=== PATIENT | female | born 1980 | race Caucasian/White ===

== ENCOUNTER → 2021-04-24 | Outpatient (CLI) | payer BC, OTHER | LOC: ULTRA 11:46 | PROVIDERS: ATTEND Nurse Practitioner | DX: N92.6 Irregular menstruation, unspecified (principal) ==

== ENCOUNTER → 2021-11-22 | Outpatient (CLI) | payer BC, OTHER | LOC: BC 10:38 | PROVIDERS: ATTEND Nurse Practitioner | DX: Z12.31 Encounter for screening mammogram for malignant neoplasm of breast (principal); N63.10 Unspecified lump in the right breast, unspecified quadrant; N63.20 Unspecified lump in the left breast, unspecified quadrant ==

== ENCOUNTER → 2021-12-04 | Outpatient (CLI) | payer BC, OTHER | LOC: ULTRA 14:24 | PROVIDERS: ATTEND Nurse Practitioner | DX: N63.23 Unspecified lump in the left breast, lower outer quadrant (principal); N60.01 Solitary cyst of right breast; N63.10 Unspecified lump in the right breast, unspecified quadrant ==

== ENCOUNTER → 2021-12-12 | Outpatient (CLI) | payer BC, OTHER ==
--- NOTE | 2021-12-17 11:07 | PATH ---
[facility] [address] [place] [address] PATHOLOGY RPT PROCEDURE Name: MATTHEW DEL CID Room #: REG RADHA Curiel.#: [id number] Admission: 12/12/21 Date of : 76 Discharge: Report #: [id number] Path Case #: [id number] [facility] Accession Number: [id number] . 01 Material submitted: . breast - LT BREAST MASS. Modifiers: left . 01 Clinical history: . 3 O'CLOCK 5 CMFN . 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 - Negative for atypia or malignancy. (GABE:gonzalo; 12/14/2021) MBR 12/14/2021 1052 Local . 02 Comment: Dr. Axel Epperson has co-reviewed this case on 12/14/2021 and agrees with my diagnosis. (ANK:gonzalo; 12/14/2021) . 02 Electronically signed: . Zelda Holt MD, Pathologist NPI- [id number] . 01 Gross description: . The specimen is received in formalin, labeled "Matthew Del Cid, left breast 3:00 5 cm from nipple". Received are multiple needle cores of fibrofatty tissue measuring 1.7 x 1.2 x 0.2 cm in aggregate dimensions. The specimen is submitted entirely in cassettes A1 through A3. The cold ischemic time is less than 1 minute. The total formalin fixation time is 25 hours and [address] minutes. ([facility]; 12/13/2021) QAC/QAC 12/13/2021 1136 Local . 02 Pathologist provided ICD-10: N62, N60.32 . 02 CPT . 495367 Specimen Comment: A courtesy copy of this report has been sent to [phone], [phone] Specimen Comment: [address] [place] [address] PATHOLOGY RPT PROCEDURE Name: MATTHEW DEL CID CATE Room #: REG RADHA Blank#: [id number] Admission: 12/12/21 Date of : 76 Discharge: Report #: [id number] Path Case #: [id number] Specimen Comment: Report sent to / ANNA[facility]EL Specimen Comment: A duplicate report has been generated due to demographic updates. Performed at: [address], [place] [id number] MD Axel Epperson MD Phone: [phone] Performed at: [address] [id number] MD Zelda Holt MD Phone: [phone]
== END | disposition home or self-care (01) ==
LOC: BC 08:08
PROVIDERS: ATTEND Nurse Practitioner
DX: N60.32 Fibrosclerosis of left breast (principal); N62 Hypertrophy of breast; R92.1 Mammographic calcification found on diagnostic imaging of breast